=== PATIENT | female | born 1955 | race African-American/Black ===

== ENCOUNTER 2019-04-25 03:33 | Emergency (ER) | payer SELFPAY ==
[2019-04-25] MEDS ORDERED: FLUORESCEIN NA 1 EA STRIP OD ONE (05:05)
[2019-04-25] MEDS ORDERED: PROPARACAINE 0.5% OPHTH SOLN 15 ML BTL OD ONE (05:05)
[2019-04-25] MEDS ORDERED: ERYTHROMYCIN 0.5% OPHTHALMIC OINTMENT 3.5 GM TUBE OD ONE (05:07)
[2019-04-25] MEDS ORDERED: FLUORESCEIN NA 1 EA STRIP ONE (05:08)
[2019-04-25] MEDS ORDERED: ERYTHROMYCIN 0.5% OPHTHALMIC OINTMENT 3.5 GM TUBE ONE (05:08)
[2019-04-25] MEDS ORDERED: TETRACAINE 0.5% HCL 0.6ML DROPPER.BOTTLE OD ONE (05:09)
[2019-04-25] MEDS ORDERED: TETRACAINE 0.5% OPHTH SOLN 2 ML BOTTLE ONE (05:09)
[2019-04-25 05:13] VITALS: BP 111/66; PULSE 83; TEMP 98.5; BMI 24.9
--- NOTE | 2019-04-25 05:15 | PDOC ---
Attending Attestation - Resident Resident Name: BayronDarian guzman - ED Attending Attestation I have performed the following: I have examined & evaluated the patient, The case was reviewed & discussed with the resident, I agree w/resident's findings & plan - HPI HPI: 04/25/19 05:15 see resident hpi - Physicial Exam PE: 04/25/19 05:15 agree with resident exam - Medical Decision Making 04/25/19 05:16 63-year-old female with pain discharge and swelling to the right eye Exam consistent with conjunctivitis with resulting chemosis Visual acuity grossly intact There is no uptake on fluorescein exam Patient states that she can follow-up with a marketing proposal specialist near her place of work Will DC with antibiotic ointment
--- NOTE | 2019-04-25 05:19 | PDOC ---
History of Present Illness - General Chief Complaint: Eye Problem Stated Complaint: SWELLING RIGHT EYE Time Seen by Provider: 04/25/19 05:01 History Source: Patient Exam Limitations: No Limitations - History of Present Illness Initial Comments: 04/25/19 05:19 Patient is 63F with no reported medical history here today complaining of eye pain. She states it started yesterday. Endorses discharge. Denies fevers, chills , nauesa, vomiting. Denies contact use. Past History - Past Medical History Allergies/Adverse Reactions: Allergies Allergy/AdvReac Type Severity Reaction Status Date / Time No Known Allergies Allergy Verified 04/25/19 04:43 Home Medications: Ambulatory Orders Erythromycin 0.5% Eye Ointment [Erythromycin 0.5% Eye Ointment -] 1 applic OD TID #1 tube 04/25/19 COPD: No - Immunization History Immunization Up to Date: Yes - Psycho Social/Smoking Cessation Hx Smoking History: Never smoked Hx Alcohol Use: No Drug/Substance Use Hx: No Review of Systems - Review of Systems Able to Perform ROS?: Yes Comments:: 04/25/19 05:20 GENERAL/CONSTITUTIONAL: No fever or chills. No weakness. HEAD, EYES, EARS, NOSE AND THROAT: No change in vision. +Eye discharge. No sore throat. CARDIOVASCULAR: No chest pain or shortness of breath RESPIRATORY: No cough, wheezing, or hemoptysis. GENITOURINARY: No dysuria, frequency, or change in urination. MUSCULOSKELETAL: No joint or muscle swelling or pain. No neck or back pain. SKIN: No rash NEUROLOGIC: No headache, vertigo, loss of consciousness, or change in strength/ sensation. *Physical Exam - Vital Signs Last Vital Signs Temp Pulse Resp BP Pulse Ox 98.5 F 83 17 111/66 100 04/25/19 03:35 04/25/19 03:35 04/25/19 03:35 04/25/19 03:35 04/25/19 03:35 - Physical Exam 04/25/19 05:21 GENERAL: Awake, alert, and fully oriented, in no acute distress HEAD: No signs of trauma, normocephalic, atraumatic EYES: PERRLA, EOMI, sclera anicteric, injected R conjunctiva with surrounding discharge, no uptake on fluorescein exam. ENT: Auricles normal inspection, hearing grossly normal, nares patent, oropharynx clear without exudates. Moist mucosa NECK: Normal ROM, supple, no lymphadenopathy, JVD, or masses LUNGS: No distress, speaks full sentences, clear to auscultation bilaterally HEART: Regular rate and rhythm, normal S1 and S2, no murmurs, rubs or gallops, peripheral pulses normal and equal bilaterally. NEUROLOGICAL: Cranial nerves II through XII grossly intact. Normal speech, normal gait, no focal sensorimotor deficits SKIN: Warm, Dry, normal turgor, no rashes or lesions noted. ED Treatment Course - Medications Given in the ED: ED Medications Discontinued Medications Generic Name Dose Route Start Last Admin Trade Name Vaughnq PRN Reason Stop Dose Admin Erythromycin 1 applic 04/25/19 05:07 04/25/19 05:14 Erythromycin 0.5% Eye Ointment OD 04/25/19 05:08 1 applic ONCE ONE Administration Fluorescein Sodium 1 ea 04/25/19 05:05 04/25/19 05:14 Fluorets - OD 04/25/19 05:06 1 ea ONCE ONE Administration Proparacaine HCl 1 drop 04/25/19 05:05 04/25/19 05:15 Alcaine - OD 04/25/19 05:06 Not Given ONCE ONE Tetracaine HCl 1 drop 04/25/19 05:09 04/25/19 05:15 Tetravisc 0.5% Eye Drops - OD 04/25/19 05:10 1 drop ONCE ONE Administration Medical Decision Making - Medical Decision Making 04/25/19 05:23 Patient is 63F here today with conjunctivitis. Vitals normal and stable. No abrasion seen. Vision 80/20 in R, 60/20 in L, normally wears glasses. Exam done without and not available. Will discharge home. Patient states that she will follow up this morning with optho with [facility] in [place]. Will discharge with erythromycin. No contact history. Discharge - Discharge Information Problems reviewed: Yes Clinical Impression/Diagnosis: Conjunctivitis Qualifiers: Conjunctivitis type: acute Acute conjunctivitis type: bacterial Laterality: right Qualified Code(s): H10.31 - Unspecified acute conjunctivitis, right eye Condition: Fair Disposition: HOME - Admission No - Additional Discharge Information Prescriptions: Erythromycin 0.5% Eye Ointment [Erythromycin 0.5% Eye Ointment -] 1 applic OD TID #1 tube - Follow up/Referral - Patient Discharge Instructions Patient Printed Discharge Instructions: DI for Conjunctivitis Additional Instructions: Please follow up with an opthalmologist this morning. Dr Donald [address] [place] [id number] - Post Discharge Activity
== END 2019-04-25 05:30 | disposition home or self-care (01) ==
LOC: JER 03:33
PROC: 4A07X0Z Measurement of Visual Acuity, External Approach (ICD-10-PCS; principal; 2019-04-25)
DX: H10.31 Unspecified acute conjunctivitis, right eye (principal)
CPT/HCPCS: 99281-25

== ENCOUNTER 2020-04-26 20:15 | Emergency (ER) | payer OTHER ==
[2020-04-26 20:23] VITALS: BP 148/88; PULSE 76; TEMP 98.6; BMI 27.3
[2020-04-26] MEDS ORDERED: PIPERACILLIN/TAZOB 4.5 GM 4.5 GM in DEXTROSE 5%-WATER 100 ML IVPB ONE (21:46)
[2020-04-26] MEDS ORDERED: VANCOMYCIN 1 GM in D5W (PRE-DOCKED) 1,000 MG/250 ML IVPB ONE (21:46)
== END 2020-04-26 22:08 | disposition home or self-care (01) ==
LOC: JER 20:15
PROC: 3E033NZ Introduction of Analgesics, Hypnotics, Sedatives into Peripheral Vein, Percutaneous Approach (ICD-10-PCS; principal; 2020-04-26)
DX: Z04.3 Encounter for examination and observation following other accident (principal)
CPT/HCPCS: 96365; 99285-25